=== PATIENT | female | born 1985 | race Caucasian/White ===

== ENCOUNTER 2016-12-05 17:46 | Emergency (ER) | payer MEDICAID, OTHER ==
[2016-12-05 18:04] VITALS: BP 120/74; PULSE 85; RESP 16; TEMP 99.1; O2SAT 100
--- NOTE | 2016-12-05 19:04 | ED PDOC ---
HPI: General Adult Time Seen by Provider: 12/05/16 18:42 Chief Complaint (Nursing): Female Genitourinary Chief Complaint (Provider): right side abdominal pain History Per: Patient Additional Complaint(s): 31 year old female with no past medical history presents with right lower quadrant abdominal pain 5 days. Patient has mild nausea but no vomiting, diarrhea or constipation. She denies any associated vaginal bleeding, vaginal discharge or dysuria. No known fever or chills. Patient states the pain got much worse today prompting ER visit. Patient denies concern for . She does state that several years ago she was told that she has a right ovarian cyst. Patient denies any concern for STD. Past Medical History Reviewed: Historical Data Vital Signs: Last Vital Signs Temp 99.1 F 12/05/16 18:00 Pulse 85 12/05/16 18:00 Resp 16 12/05/16 18:00 BP 120/74 12/05/16 18:00 Pulse Ox 100 12/06/16 01:09 - Medical History PMH: No Chronic Diseases - Family History Family History: States: No Known Family Hx - Living Arrangements Living Arrangements: With Family - Social History Current smoker - smoking cessation education provided: No Alcohol: None Drugs: Denies - Home Medications Home Medications: Ambulatory Orders Medication Instructions Recorded Ibuprofen [Motrin] 600 mg PO Q6 #20 tab 12/06/16 - Allergies Allergies/Adverse Reactions: Allergies Allergy/AdvReac Type Severity Reaction Status Date / Time No Known Allergies Allergy Verified 12/05/16 18:00 Review of Systems ROS Statement: Except As Marked, All Systems Reviewed And Found Negative Constitutional: Negative for: Fever, Chills Cardiovascular: Negative for: Chest Pain Respiratory: Negative for: Cough Gastrointestinal: Positive for: Nausea, Abdominal Pain. Negative for: Vomiting , Diarrhea, Constipation Genitourinary Female: Negative for: Dysuria, Frequency, Incontinence, Hematuria , Vaginal Discharge, Vaginal Bleeding Physical Exam - Reviewed Nursing Documentation Reviewed: Yes Vital Signs Reviewed: Yes - Physical Exam Appears: Positive for: Well, Non-toxic, No Acute Distress Skin: Negative for: Rash Eye Exam: Positive for: Normal appearance, EOMI, PERRL Cardiovascular/Chest: Positive for: Regular Rate, Rhythm Respiratory: Positive for: Normal Breath Sounds. Negative for: Respiratory Distress Gastrointestinal/Abdominal: Positive for: Tenderness (moderate RLQ tenderness ) , Guarding. Negative for: Distended, Rebound Back: Negative for: L CVA Tenderness, R CVA Tenderness Extremity: Positive for: Normal ROM Neurologic/Psych: Positive for: Alert, Oriented - Laboratory Results Result Diagrams: 12/05/16 19:20 12/05/16 19:20 - ECG O2 Sat by Pulse Oximetry: 100 Pulse Ox Interpretation: Normal Medical Decision Making Medical Decision Makin31 year old female with abd pain Plan: CBC CMP UA CT abd and pelvis with IV contrast IVF Pain meds declined Disposition - Clinical Impression Clinical Impression: Abdominal pain - Patient ED Disposition Is Patient to be Admitted: Transfer of Care - Disposition Disposition: Transfer of Care Disposition Time: 13:32 Condition: FAIR Prescriptions: Ibuprofen [Motrin] 600 mg PO Q6 #20 tab Patient Signed Over To: Kaity Duvall Handoff Comments: Signed out to ISELA Duvall pending diagnostic testing results and final dispo
[2016-12-05] MEDS ORDERED: Sodium Chloride 0.9% 1,000 ML IV STA (19:13)
[2016-12-05 19:36] LABS: BASO # 0.1 K/uL (0.0-0.2); BASO % 0.6 % (0.0-2.0); EOS # 0.3 K/uL (0.0-0.7); EOS % 3.2 % (0.0-4.0); HEMATOCRIT 41.5 % (34.0-47.0); LYMPH % 22.5 % (20.0-40.0); MEAN CELL VOLUME 83.1 fl (81.0-99.0); MEAN CORPUSCULAR HEMOGLOBIN 26.8 pg (27.0-31.0); MEAN CORPUSCULAR HGB CONC 32.2 g/dL (33.0-37.0); MEAN PLATELET VOLUME 9.6 fl (7.2-11.7); MONO # 0.8 K/uL (0.0-0.8); MONO % 8.8 % (0.0-10.0); NEUT # 5.9 K/uL (1.8-7.0); NEUT % 64.9 % (50.0-75.0); NRBC % 0.1 % (0.0-0.0); WHITE BLOOD COUNT 9.1 K/uL (4.8-10.8)
[2016-12-05 19:48] LABS: RBC URINE 3 /hpf (0-3); URINE BACTERIA RARE (<OCC); URINE BILIRUBIN NEGATIVE (NEGATIVE); URINE BLOOD NEGATIVE (NEGATIVE); URINE COLOR STRAW (YELLOW); URINE GLUCOSE (UA) NEG (Normal); URINE KETONE NEGATIVE (NEGATIVE); URINE LEUKOCYTE ESTERASE NEG Leu/uL (Negative); URINE PROTEIN NEGATIVE (NEGATIVE); URINE UROBILINOGEN 0.2-1.0 mg/dL (0.2-1.0); WBC URINE < 1 /hpf (0-5)
[2016-12-05 19:53] LABS: ALB/GLOB RATIO 1.4 (1.0-2.1); ALKALINE PHOSPHATASE 71 U/L (38-126); ALT/SGPT 28 U/L (9-52); AST/SGOT 35 U/L (14-36); BILIRUBIN,TOTAL 0.4 mg/dl (0.2-1.3); BLOOD UREA NITROGEN 15 mg/dl (7-17); CALCIUM 9.2 mg/dL (8.4-10.2); CARBON DIOXIDE 24 mmol/L (22-30); CHLORIDE 102 mmol/L (98-107); GFR AFRICAN-AMERICAN > 60; GLUCOSE,RANDOM 95 mg/dL (65-105); POTASSIUM 4.1 MMOL/L (3.6-5.0); SODIUM 137 mmol/l (132-148); TOTAL PROTEIN 8.1 G/DL (6.3-8.2)
--- NOTE | 2016-12-05 20:17 | ED PDOC ---
- Laboratory Results Result Diagrams: 12/05/16 19:20 12/05/16 19:20 - ECG O2 Sat by Pulse Oximetry: 100 Medical Decision Making Medical Decision Making: Case endorsed to keno writer from TY Sosa at 20:00 pending diagnostic review and re-eval CBC, COMP and UA resulted WNL IMPRESSION: 1. Probable RIGHT ovarian cyst. Consider ultrasound. 2. Mild cystitis vs underdistention. Correlate with urinalysis. 3. Incidental/non-acute findings are described above. US obtained as well, no torsion. Stable for discharge at this time [facility] Disposition - Clinical Impression Clinical Impression: Ovarian cyst - POA Present On Arrival: None - Disposition [facility] Disposition: Routine/Home Disposition Time: 01:08 Condition: STABLE Prescriptions: Ibuprofen [Motrin] 600 mg PO Q6 #20 tab Instructions: Ovarian Cyst (ED) Forms: [employer] (Hebrew)
[2016-12-05] MEDS ORDERED: Iohexol 300 100 ML IJ ONE (20:49)
[2016-12-05] MEDS ORDERED: Sodium Chloride 0.9% 50 ML IV ONE (20:50)
--- NOTE | 2016-12-06 01:11 | US ---
EXAM: US Pelvis Complete, Transabdominal CLINICAL HISTORY: 31 years old, female; Pain; Pelvic pain; Additional info: Right ovarian cyst- R/O torsion TECHNIQUE: Real-time transabdominal pelvic ultrasound (complete) with image documentation. COMPARISON: CT - ABD PELVIS IV CONTRA 12/05/2016 9:00:06 PM FINDINGS: Uterus/cervix: Uterus measures 9.2 x 5.0 x 6.2 cm in size. No myometrial mass. Endometrium: 0.7 cm in thickness. Right ovary: 6.1 x 4.0 x 3.7 cm in size. 4.6 x 2.8 x 4.7 cm septated hypoechoic lesion with internal echoes. Small follicles. Normal flow. Left ovary: 3.3 x 1.8 x 1.9 cm in size. No mass. Small follicles. Normal flow. Free fluid: No significant free fluid. Bladder: Unremarkable as visualized. IMPRESSION: 1. Probable hemorrhagic RIGHT ovarian cyst. Recommend sonographic followup in 6 weeks to ensure resolution and exclude other etiologies. 2. Incidental/non-acute findings are described above. EXAM: US Pelvis, Transvaginal CLINICAL HISTORY: 31 years old, female; Pain; Pelvic pain; Additional info: Right ovarian cyst- R/O torsion TECHNIQUE: Real-time transvaginal pelvic ultrasound (complete) with image documentation. Transvaginal imaging was used for better evaluation of the endometrium and adnexa. COMPARISON: CT - ABD PELVIS IV CONTRA 12/05/2016 9:00:06 PM FINDINGS: Uterus/cervix: Uterus measures 9.2 x 5.0 x 6.2 cm in size. No myometrial mass. Endometrium: 0.7 cm in thickness. Right ovary: 6.1 x 4.0 x 3.7 cm in size. 4.6 x 2.8 x 4.7 cm septated hypoechoic lesion with internal echoes. Small follicles. Normal flow. Left ovary: 3.3 x 1.8 x 1.9 cm in size. No mass. Small follicles. Normal flow. Free fluid: No significant free fluid. Bladder: Empty bladder which cannot be evaluated with this probe.
--- NOTE | 2016-12-06 10:47 | CT ---
PROCEDURE: CT abdomen and pelvis dated 12/05/2016. . HISTORY: RLQ abd pain COMPARISON: No prior TECHNIQUE: Contiguous axial images of the abdomen and pelvis. Oral contrast was administered. No IV contrast given. Coronal and Sagittal reformats generated. Radiation dose: Total exam DLP = 293.93 mGy-cm. This CT exam was performed using one or more of the following dose reduction techniques: Automated exposure control, adjustment of the mA and/or kV according to patient size, and/or use of iterative reconstruction technique. FINDINGS: LOWER THORAX: Lung bases are clear. No infiltrate effusion or basilar pneumothorax. Heart size is within range of normal. No significant pericardial effusion. . Tiny hiatal hernia. LIVER: The liver is of borderline/mildly enlarged measuring nearly 19 cm in CC dimension. Mild to moderate diffuse fatty hepatic infiltration. No obvious hepatic mass or collection identified on this exam. Portal and splenic veins are opacified. GALLBLADDER AND BILE DUCTS: Gallbladder gallbladder calculi appears incompletely distended. No evidence of intraluminal calculi. PANCREAS: Visualized portions of the pancreas appear grossly unremarkable without mass collection calcification or significant ductal dilatation. SPLEEN: Spleen exhibits normal size and attenuation pattern without mass collection or calcification. ADRENALS: There are no adrenal lesions. KIDNEYS AND URETERS: Kidneys exhibit symmetric nephrograms. No evidence of nephrolithiasis or hydronephrosis. BLADDER: Urinary bladder is incompletely distended which may account for thick-walled appearance. The possibility of a cystitis to be excluded. REPRODUCTIVE: There is a large approximately 4.9 AP by 4.1 trans by 4.3 cm cc cystic mass lesion in the cul de sac centrally and to the right of midline which could represent large right ovarian cyst or cystic mass. Followup pelvic ultrasound and/or MRI of the female pelvis recommended. . There appears be a very thin enhancing rim about this and suspected ovarian cystic lesion. The cystic lesion exerts compressive effects on the rectosigmoid which is displaced to the right side. There is mild anterior displacement of the uterus. APPENDIX: What is felt to represent the appendix best seen on axial image number [id number]. BOWEL: Evaluation of the bowel slightly limited due to the lack of oral contrast material. Stomach is incompletely distended which presumably accounts for thick-walled appearance. Visualized loops of small bowel exhibit normal contour caliber. See Moderate amount of stool is seen within the cecum and ascending colon suggesting mild fecal retention. . PERITONEUM: Unremarkable. No fluid collection. No free air. LYMPH NODES: Unremarkable. No enlarged lymph nodes. VASCULATURE: Unremarkable. No aortic aneurysm. BONES: Minor multilevel degenerative spondylosis of the lower thoracic and lumbar spine. OTHER FINDINGS: None. IMPRESSION: There is a large cystic mass lesion within the mid and right parasagittal aspect of the cul de sac with a thin enhancing rim. This could represent a large ovarian cyst or cystic mass ovarian origin. The lesion exerts surrounding mass effect with compression of the rectosigmoid to the left and at anterior displacement of the uterus. Followup pelvic ultrasound and/or MRI of the female pelvis recommended for further evaluation. Mild hepatomegaly with moderate fatty hepatic infiltration. See above discussion for additional findings and details.
== END 2016-12-06 01:29 | disposition home or self-care (01) ==
LOC: H.ER 17:46
DX: N83.201 Unspecified ovarian cyst, right side (principal); R10.31 Right lower quadrant pain; R16.0 Hepatomegaly, not elsewhere classified